=== PATIENT | female | born 1980 | race Caucasian/White ===

== ENCOUNTER → 2019-05-30 09:07 | Outpatient (CLI) | payer OTHER, SELFPAY ==
--- NOTE | 2019-05-30 09:13 | XR_ITS ---
PROCEDURE: XR SHOULDER LT MIN 2V CLINICAL INDICATION: shoulder pain Feels like it catches patient heard a pop COMPARISON: No exams were available for comparison FINDINGS: There is no fracture dislocation or other focal bony lesion. IMPRESSION: No acute findings. Dictated by: Kyle Carreno 05/30/2019 11:14 Electronically signed by Kyle Carreno in [place] 05/30/2019 11:14
--- NOTE | 2019-05-30 09:13 | XR_ITS ---
PROCEDURE: XR SHOULDER RT MIN 2V CLINICAL INDICATION: right shoulder pain Feels like it catches according to the patient COMPARISON: No exams were available for comparison FINDINGS: There is no fracture dislocation or other focal bony lesion. IMPRESSION: No acute findings. Dictated by: Kyle Carreno 05/30/2019 11:16 Electronically signed by Kyle Carreno in [place] 05/30/2019 11:16
== END ==
PROVIDERS: PCP Family Medicine; Visit Provider Orthopaedic Surgery
DX: M25.512 Pain in left shoulder (principal); M25.511 Pain in right shoulder
CPT/HCPCS: 73030

== ENCOUNTER → 2019-10-19 17:05 | Outpatient (CLI) | payer OTHER, SELFPAY ==
[2019-10-19 17:55] LABS: Basophils # 0.1 K/mm3 (0-0.2); Basophils % 0.6 % (0.1-2.0); Eosinophils # 0.2 K/mm3 (0.0-0.4); Hematocrit 37.7 % (37.0-47.0); Hemoglobin 12.2 g/dL (12.2-16.2); Lymphocytes # 2.9 K/mm3 (0.7-4.5); Lymphocytes % 28.7 % (10-50); Mean Corpuscular HGB Conc 32.4 g/dL (31.8-35.4); Mean Corpuscular Hemoglobin 28.3 pg (27.0-31.2); Mean Corpuscular Volume 87.1 fl (81-99); Monocytes # 0.6 K/mm3 (0.1-1.0); Monocytes % 5.8 % (1.7-9.3); Neutrophils # 6.4 K/mm3 (1.8-7.8); Neutrophils % 62.9 % (37.0-80.0); Platelet Count 317 K/mm3 (142-424); Red Blood Count 4.33 M/mm3 (4.20-5.40); Red Cell Distribution Width 15.5 % (11.5-17.5); White Blood Count 10.1 K/mm3 (4.8-10.8)
== END ==
PROVIDERS: PCP Family Medicine; Visit Provider Nurse Practitioner
DX: Z20.828 Contact with and (suspected) exposure to other viral communicable diseases (principal); U07.1 COVID-19
CPT/HCPCS: 36415; 85025; U0003

== ENCOUNTER → 2021-01-14 12:03 | Outpatient (CLI) | payer OTHER, SELFPAY ==
[2021-01-14 14:40] LABS: Free Thyroxine Index 2.8 ug/dL (5.93-13.13); T4 (Thyroxine) 8.1 ug/dl (5.53-11.0); Triiodothryronine (T3) Uptake 35 % (23.5-40.5)
[2021-01-14 14:53] LABS: Thyroid Stimulating Hormone 1.11 uIU/mL (0.465-4.68)
[2021-01-15 08:26] LABS: FSH 2.6 mIU/mL (.); LH 2.6 mIU/mL (.); Triiodothyronine (T3) Total 125 ng/dL (71-180)
[2021-01-15 19:08] LABS: Testosterone,Free 2.4 pg/mL (0.0-4.2)
== END ==
PROVIDERS: Visit Provider Nurse Practitioner Obstetrics & Gynecology
DX: E28.2 Polycystic ovarian syndrome (principal); R63.5 Abnormal weight gain; Z68.42 Body mass index [BMI] 45.0-49.9, adult
CPT/HCPCS: 36415; 82626; 83001; 83002; 84402; 84436; 84443; 84479; 84480

== ENCOUNTER → 2021-01-21 15:18 | Outpatient (CLI) | payer OTHER, SELFPAY ==
--- NOTE | 2021-01-21 15:18 | US_ITS ---
PROCEDURE: US TRANSVAGINAL CLINICAL INDICATION: US TV J[employer] for irregular periods,POS,Pelvic pain COMPARISON: No exams were available for comparison FINDINGS: UTERUS: 9cm x 5cmx 4cm with a combined endometrial thickness of 4.2mm. There is a 1 cm nabothian cyst. No uterine mass evident LEFT OVARY: [id number] with a volume of 4.8ml. RIGHT OVARY: [id number] with a volume of 6.9ml. No free fluid. The ovaries are somewhat difficult to visualize but have an unremarkable appearance. IMPRESSION: Negative pelvic ultrasound Dictated by: Diomedes Gunter MD 01/21/2021 18:12 Diomedes Gunter MD in [place] 01/21/2021 18:12
== END ==
PROVIDERS: Visit Provider Nurse Practitioner Obstetrics & Gynecology
DX: E28.2 Polycystic ovarian syndrome (principal); N92.6 Irregular menstruation, unspecified; R10.2 Pelvic and perineal pain
CPT/HCPCS: 76830

== ENCOUNTER 2021-10-12 15:52 | Emergency (ER) | payer OTHER, SELFPAY ==
--- NOTE | 2021-10-12 16:18 | HMH.EDUTC ---
[facility] [place] Clinical Impression: Fall Qualifiers: Encounter type: initial encounter Qualified Code(s): W19.XXXA - Unspecified fall, initial encounter Right knee pain Qualifiers: Chronicity: acute Qualified Code(s): M25.561 - Pain in right knee Left ankle sprain Qualifiers: Encounter type: initial encounter Involved ligament of ankle: unspecified ligament Qualified Code(s): S93.402A - Sprain of unspecified ligament of left ankle, initial encounter Contusion of right knee Qualifiers: Encounter type: initial encounter Qualified Code(s): S80.01XA - Contusion of right knee, initial encounter Disposition: Home, Self-Care Condition on Discharge: Good Instructions: How to Use Crutches, DI for Ankle Sprain, DI for Knee Pain Additional Instructions: Rest the extremity, apply ice for 15 minutes as tolerated three or four times per day, Elevate the extremity as tolerated while you are resting. Take ibuprofen for pain. I sent in a prescription to your pharmacy. Follow up with Dr. Hanson (orthopedics). I put in a referral but you need to call his office and schedule an appointment. Follow up with your regular doctor. GO TO THE ER FOR ANY WORSENING SYMPTOMS I would like for you to be seen by orthopedics before you go back to work. Please call Dr. Hanson's office on Thursday to get an appointment there. Prescriptions: Ibuprofen [Ibuprofen 800mg Tablet] 800 mg PO Q8HP PRN #30 tab PRN Reason: Moderate Pain Transmission Status: Received by [id number] Referrals: Jamel Teran MD [Primary Care Provider] - Kyree Hanson MD [Staff Physician] - Forms: Work/School Release Time of Disposition: 17:55 Medical Decision Making - Medical Records Medical records reviewed: No: I reviewed the patient's medical records. - [place] Inquiry Pt receiving controlled substance: No Vital Signs: 10/12/21 16:46 10/12/21 18:01 Temperature 99.6 F 99.6 F Temperature Source Oral Pulse Rate 107 H Pulse Rate [Left] 107 H Respiratory Rate 19 19 Blood Pressure 177/92 H Blood Pressure [Right Arm] 177/92 H Blood Pressure Mean [Right Arm] 120 02 Sat by Pulse Oximetry 97 [facility] [place] H[place] - General Stated complaint: WC08/12@1500@work injured L ankle,R Knee Time Seen by Provider: 10/12/21 16:18 - History of Present Illness Provider Complaint: She states that she twisted her left ankle and right knee at work from falling. This occured yesterday. - Related Data Home Medications Medication Instructions Recorded Confirmed fluticasone propionate 55 1 inh INHALATION BID 01/14/21 01/14/21 mcg/actuation breath activated pwdr inhaler,sensor Previous Rx's Medication Instructions Recorded fluconazole 200 mg tablet 200 mg PO DAILY 7 Days #7 tab 01/14/21 Ibuprofen [Ibuprofen 800mg 800 mg PO Q8HP PRN #30 tab 10/12/21 Tablet] Allergies Allergy/AdvReac Type Severity Reaction Status Date / Time Penicillins Allergy Verified 10/12/21 16:49 [facility] History - Hepatitis A Screen Attestation statement:: This patient has been screened for Hepatitis A risk factors. I have reviewed the patient's past medical history: Yes Laterality Cases: Right: Arthroscopy Shoulder Other Surgeries: Yes: Other (Deviated Septum) - Social History Smoking Status: Never smoker Alcohol Intake: never Occupational Status: employed Family Hx:: Hypertension, Heart Attack, Cancer, Diabetes, Coronary Artery Disease ROS Obtained: Yes All systems reviewed & no additional complaints - Constitutional Constitutional: Denies chills, Denies fever(s) - Musculoskeletal Musculoskeletal: Reports as per HPI - Integumentary/Breasts Skin/Breast: Denies rash - Neurologic Neurologic: Denies tingling/numbness/burning sensations Physical Exam - General General appearance: alert, in no apparent distress - Head Head exam: atraumatic, normocephalic, normal inspection - Eye Eye exam: Present
--- NOTE | 2021-10-12 16:41 | XR_ITS ---
PROCEDURE INFORMATION: Exam: XR Right Knee Exam date and time: 10/12/2021 4:44 PM Age: 40 years old Clinical indication: Pain; Knee; Right; Additional info: Fall TECHNIQUE: Imaging protocol: Radiologic exam of the Right knee. Views: 3 views. COMPARISON: No relevant prior studies available. FINDINGS: Bones/joints: There is no evidence of acute fracture or dislocation. There is trace narrowing of the medial femoral tibial joint space. Joint spaces appear otherwise preserved. Soft tissues: No significant soft tissue edema. No subcutaneous emphysema or radiopaque foreign bodies. IMPRESSION: No acute posttraumatic osseous injury.
--- NOTE | 2021-10-12 16:41 | XR_ITS ---
PROCEDURE INFORMATION: Exam: XR Left Foot Exam date and time: 10/12/2021 4:46 PM Age: 40 years old Clinical indication: Pain; Foot; Left; Additional info: Fall TECHNIQUE: Imaging protocol: Radiologic exam of the Left foot. Views: 3 or more views. COMPARISON: No relevant prior studies available. FINDINGS: Bones/joints: There is no evidence of acute fracture or dislocation. Mild degenerative changes involve the 1st MTP joint. There is mild metatarsus adductus and hallux valgus deformity.Calcaneal spurs are demonstrated at the origin of the plantar fascia. Mild degenerative changes involve the talonavicular joint. Joint spaces appear otherwise preserved. Soft tissues: No significant soft tissue edema. No subcutaneous emphysema or radiopaque foreign bodies. IMPRESSION: No acute posttraumatic osseous injury.
--- NOTE | 2021-10-12 16:41 | XR_ITS ---
PROCEDURE INFORMATION: Exam: XR Left Ankle Exam date and time: 10/12/2021 4:47 PM Age: 40 years old Clinical indication: Pain; Ankle; Left; Additional info: Fall TECHNIQUE: Imaging protocol: Radiologic exam of the Left ankle. Views: 3 or more views. COMPARISON: CR XR FOOT LT MIN 3V 10/12/2021 4:46 PM FINDINGS: Bones/joints: There is a subtle vertically oriented linear lucency involving the distal medial aspect of the lateral malleolus only seen on the oblique projection. This is equivocal for subtle fracture. Otherwise, there is no evidence of acute fracture or dislocation. Joint spaces appear preserved. Calcaneal spurs are demonstrated at the origin of the plantar fascia. Soft tissues: There is soft tissue thickening increased density involving the lateral soft tissues of the ankle suggestive of edema. No subcutaneous emphysema or radiopaque foreign bodies. IMPRESSION: 1. Subtle vertically oriented linear lucency involving the distal medial aspect of the lateral malleolus only seen on the oblique projection, equivocal for subtle fracture. Correlate with focal physical examination. 2. Lateral ankle soft tissue edema. 3. Otherwise, there is no evidence of acute fracture or dislocation
[2021-10-12 16:46] VITALS: BP 177/92; PULSE 107; RESP 19; TEMP 37.6; O2SAT 97; BMI 41.9
[2021-10-12 18:01] VITALS: BP 177/92; PULSE 107; RESP 19; TEMP 37.6
== END 2021-10-12 18:07 | disposition home or self-care (01) ==
PROVIDERS: Emergency Provider Nurse Practitioner Family; PCP Family Medicine
DX: M25.561 Pain in right knee (principal); S93.402A Sprain of unspecified ligament of left ankle, initial encounter; S80.01XA Contusion of right knee, initial encounter; W19.XXXA Unspecified fall, initial encounter; Y99.0 Civilian activity done for income or pay
CPT/HCPCS: 73562; 73610; 73630; 99212; G0463

== ENCOUNTER 2021-10-22 07:48 | Emergency (ER) | payer OTHER, SELFPAY ==
[2021-10-22 07:49] VITALS: BP 131/88; PULSE 96; RESP 18; TEMP 36.9; O2SAT 96; BMI 43.5
[2021-10-22 07:56] VITALS: BP 131/88; PULSE 89; RESP 16; O2SAT 95
[2021-10-22 08:01] VITALS: BP 116/72; PULSE 72; RESP 16; O2SAT 95
--- NOTE | 2021-10-22 08:09 | HMH.EDGENADL ---
ED Disposition Clinical Impression: COVID Sinusitis Qualifiers: Sinusitis location: unspecified location Chronicity: acute Recurrence: not specified as recurrent Qualified Code(s): J01.90 - Acute sinusitis, unspecified Disposition: Home, Self-Care Condition on Discharge: Good Instructions: DI for Sinusitis Additional Instructions: Work through and including October 25. Rest. Drink plenty of fluids. Prescriptions: Doxycycline Hyclate [Doxycycline Hyclate 100mg Tablet] 100 mg PO Q12 10 Days #20 tab Transmission Status: Received by [facility] Promethazine HCl [Phenergan 12.5mg tablet] 12.5 mg PO Q6H PRN #10 tab PRN Reason: Nausea Transmission Status: Received by [facility] Promethazine HCl [Phenergan 25mg tab] 12.5 mg PO Q6H PRN #6 tab PRN Reason: Nausea And Vomiting Referrals: Jamel Teran MD [Primary Care Provider] - - Critical Care Critical Care Time: No Attestation: On 10/22/21, the high probability of a clinically significant, sudden or life threatening deterioration of the following system(s) required my full and direct attention, intervention and personal management. The time I documented below is in addition to time spent performing reported procedures but includes the following listed in this critical care notation. Medical Decision Making - Medical Records Medical records reviewed: Yes: I reviewed the patient's medical records. - [place] Inquiry Pt receiving controlled substance: No Vital Signs: 10/22/21 07:49 10/22/21 07:56 10/22/21 08:01 Temperature 98.4 F Temperature Source Oral Pulse Rate 89 72 Pulse Rate [Right Radial] 96 H Respiratory Rate 18 16 16 Blood Pressure 131/88 116/72 Blood Pressure [Right Arm] 131/88 Blood Pressure Mean 102 94 Blood Pressure Mean [Right Arm] 102 Blood Pressure Source [Right Arm] Automatic Cuff Blood Pressure Position [Right Arm] Sitting 02 Sat by Pulse Oximetry 96 95 95 Oxygen Delivery Method Room Air 10/22/21 09:49 10/22/21 10:40 Temperature 98.2 F Temperature Source Pulse Rate 80 74 Pulse Rate [Right Radial] Respiratory Rate 16 16 Blood Pressure 126/58 L 124/61 Blood Pressure [Right Arm] Blood Pressure Mean 81 Blood Pressure Mean [Right Arm] Blood Pressure Source [Right Arm] Blood Pressure Position [Right Arm] 02 Sat by Pulse Oximetry 97 Oxygen Delivery Method - Lab Data Lab Results 10/22/21 08:52: WBC 5.0, RBC 4.82, Hgb 12.8, Hct 42.6, MCV 88.4, MCH 26.5 L, MCHC 30.0 L, RDW 16.1, Plt Count 282, MPV 7.9, Neut % (Auto) 51.4, Lymph % (Auto) 39.6, [place] % (Auto) 7.2, Eos % (Auto) 0.8, Baso % (Auto) 1.0, Neut # (Auto) 2.6, Lymph # (Auto) 2.0, [place] # (Auto) 0.4, Eos # (Auto) 0.0, Baso # (Auto) 0.1 10/22/21 08:52: Sodium 140, Potassium 3.8, Chloride 103, Carbon Dioxide 34 H, Anion Gap 6.8, BUN 10, Creatinine 0.70, Estimated Creat Clear 102, Estimated GFR 94, Est GFR ( Amer) 113, Glucose 98, Calcium 8.2 L, Total Bilirubin < 0.1 L, AST 51 H, ALT 38, Alkaline Phosphatase 82, Total Protein 7.3, Albumin 4.0, Globulin 3.3 H, Albumin/Globulin Ratio 1.2 Result diagrams: 10/22/21 08:52 10/22/21 08:52 Orders (Tests/Meds): ED MEDICATIONS Discontinued Medications Generic Name Dose Route Start Last Admin Trade Name Freq PRN Reason Stop Dose Admin Sodium Chloride 1,000 mls @ 999 mls/hr 10/22/21 09:00 10/22/21 09:00 Sod Chlor 0.9% 1000ml Bag IV 10/22/21 10:00 999 mls/hr .Q1H1M JAK Administration Sodium Chloride 10 ml 10/22/21 08:53 Sodium Chloride 0.9% 10ml Flush Syringe IV 11/21/21 08:52 NEEDED PRN Maintain IV Site General Adult HPI - General Chief complaint: Upper Respiratory Infection Stated complaint: Dry throat, cold sweats, fatigue Time Seen by Provider: 10/22/21 08:00 Mode of Arrival: Ambulatory Limitations: No Limitations Description of Symptoms (Recalled from ER Triage Doc. by RN): Pt states that she tested positive fo
[2021-10-22 09:27] LABS: Chloride 103 mmol/L (98-107); Potassium 3.8 mmoL/L (3.5-5.1); Sodium 140 mmol/L (136-145)
[2021-10-22 09:28] LABS: Basophils # 0.1 K/mm3 (0-0.2); Eosinophils % 0.8 % (0.1-12.0); Hematocrit 42.6 % (37.0-47.0); Hemoglobin 12.8 g/dL (12.2-16.2); Lymphocytes % 39.6 % (10-50); Mean Corpuscular Hemoglobin 26.5 pg (27.0-31.2); Mean Corpuscular Volume 88.4 fl (81-99); Mean Platelet Volume 7.9 fl (7.4-10.4); Monocytes # 0.4 K/mm3 (0.1-1.0); Monocytes % 7.2 % (1.7-9.3); Neutrophils # 2.6 K/mm3 (1.8-7.8); Neutrophils % 51.4 % (37.0-80.0); Platelet Count 282 K/mm3 (142-424); Red Blood Count 4.82 M/mm3 (4.20-5.40); Red Cell Distribution Width 16.1 % (11.5-17.5)
[2021-10-22 09:30] LABS: Alanine Aminotransferase 38 U/L (12-78); Albumin/Globulin Ratio 1.2 (1.1-1.8); Alkaline Phosphatase 82 U/L (38-126); Anion Gap 6.8 mEq/L (5-15); Aspartate Amino Transferase 51 U/L (14-36); Blood Urea Nitrogen 10 mg/dl (7-17); Carbon Dioxide 34 mmol/L (22.0-30.0); Creatinine Clearance Estimated 102 mL/min (50-200); Estimated Glomerular Filt Rate 94 ml/min (>60); GFR (African American) 113 ML/MIN (>60); Globulin 3.3 g/dL (1.3-3.2); Total Protein,Serum 7.3 g/dl (6.3-8.2)
[2021-10-22 09:31] LABS: Bilirubin,Total < 0.1 mg/dl (0.2-1.3); Calcium 8.2 mg/dl (8.4-10.2); Glucose 98 mg/dl (74-100)
--- NOTE | 2021-10-22 09:48 | PC.NURSE ---
pt asked for a ma blanket due to being extremely cold, gave pillow re cycled vitals
[2021-10-22 09:49] VITALS: BP 126/58; PULSE 80; RESP 16; O2SAT 97
[2021-10-22 10:40] VITALS: BP 124/61; PULSE 74; RESP 16; TEMP 36.8; O2SAT 97
== END 2021-10-22 10:49 | disposition home or self-care (01) ==
PROVIDERS: Emergency Provider Emergency Medicine; PCP Family Medicine
DX: U07.1 COVID-19 (principal); J01.90 Acute sinusitis, unspecified
CPT/HCPCS: 80053; 85025; 96365; 99284